=== PATIENT | female | born 1970 | race Caucasian/White ===

== ENCOUNTER 2020-06-09 14:31 | Emergency (ER) | payer BC ==
[~2020-06-09] VITALS: Ht 157.5 cm; Wt 66.7 kg
[2020-06-09] MEDS ORDERED: KEFLEX500 M1 PO (16:22)
[2020-06-09] MEDS ORDERED: NORCO 5-325 TA1 EAC2 PO (16:22)
[2020-06-09 16:34] VITALS: BP 122/78
== END 2020-06-09 16:35 | disposition home or self-care (01) ==
LOC: M.ERS 14:31
DX: S62.632B Displaced fracture of distal phalanx of right middle finger, initial encounter for open fracture (principal); W45.8XXA Other foreign body or object entering through skin, initial encounter; Y93.89 Activity, other specified; Y92.89 Other specified places as the place of occurrence of the external cause; Y99.8 Other external cause status